=== PATIENT | female | born 1990 | race Caucasian/White ===

== ENCOUNTER 2020-09-16 11:34 | Emergency (ER) | payer OTHER ==
--- NOTE | 2020-09-16 12:20 | EDM.PDOC ---
ED HPI GENERAL MEDICAL PROBLEM - General Chief Complaint: Respiratory Problem Stated Complaint: COVID + AND DIFFICULTY BREATHING Time Seen by Provider: 09/16/20 11:58 Source of Information: Reports: Patient, RN Notes Reviewed History Limitations: Reports: No Limitations - History of Present Illness INITIAL COMMENTS - FREE TEXT/NARRATIVE: Patient is a 30-year-old female who presents to the ED for evaluation of her ongoing COVID-19 symptoms. The patient was diagnosed with COVID-19 on 09/07/2020. She states she is having increased shortness of breath were she cannot do much activity at all without feeling very winded. This started worsening yesterday. She has a slight cough at times when she takes a deeper breath than normal. She is denying any major fevers or chills, temperature at time of triage is 97.3 F, respiratory rate is 16, O2 sats are 99% on room air at rest, 97% with exertion. She has no obvious signs of dyspnea or labored breathing. The patient states she is supposed to go back to work on Saturday at this time. She denies any chance of as she states she is currently on her menses. She is quite unsure how she contracted this virus, she thinks she may have picked this up from her sister as she states that she is very careful about wearing her mask and handwashing. She states that her primary care provider is Dr. Jerrod Bhagat. - Related Data Allergies Allergy/AdvReac Type Severity Reaction Status Date / Time oxycodone HCl [From Percocet] Allergy Edema Verified 06/18/14 14:20 Penicillins Allergy Rash Verified 06/18/14 14:20 erythromycin base AdvReac Nausea and Verified 12/27/17 08:14 [Erythromycin Base] Vomiting Home Meds: Home Meds Albuterol [Ventolin HFA] 2 puff INH Q4H PRN 03/17/14 [History] Docusate Sodium [Colace] 2 tab PO DAILY PRN 03/17/14 [History] Esomeprazole Magnesium [Nexium] 1 tab PO DAILY 03/17/14 [History] Fluticasone Propionate [Flovent HFA 110 MCG] 1 puff INH BID 03/17/14 [History] LORazepam [Ativan] 1 mg PO PRN 03/17/14 [History] Lactobacillus Combo No.11 [Probiotic] 1 each PO DAILY 03/17/14 [History] Levothyroxine Sodium 125 mcg PO DAILY 03/17/14 [History] Mometasone Furoate [Nasonex Peosta] 1 spray DONAVON BID 03/17/14 [History] Norgestimate-Ethinyl Estradiol [Ortho-Cyclen 28 Tablet] 1 each PO DAILY 03/17/14 [History] Sucralfate [Carafate] 1 tab PO QID 03/17/14 [History] fluvoxaMINE Maleate [Fluvoxamine Maleate] 250 mg PO BEDTIME 03/17/14 [History] Folic Acid/Multivit-Min/Lutein [Multi-Vitamin Gummies] 06/18/14 [History] busPIRone [Buspar] 1 tab PO TID 06/22/14 [History] dexAMETHasone [Dexamethasone] 6 mg PO DAILY #4 tab 09/16/20 [Rx] Past Medical History Respiratory History: Reports: Asthma Gastrointestinal History: Reports: GERD Psychiatric History: Reports: Anxiety, Depression Endocrine/Metabolic History: Reports: Obesity/BMI 30+ Hematologic History: Reports: Anemia Other Hematologic History: on iron tabs - Past Surgical History GI Surgical History: Reports: Appendectomy, Cholecystectomy, Hernia, Inguinal, Other (See Below) ED ROS GENERAL - Review of Systems Review Of Systems: Comprehensive ROS is negative, except as noted in HPI. ED EXAM, GENERAL - Physical Exam Exam: See Below Exam Limited By: No Limitations General Appearance: Alert, WD/WN, No Apparent Distress Respiratory/Chest: No Respiratory Distress, Lungs Clear, Normal Breath Sounds, No Accessory Muscle Use, Chest Non-Tender Cardiovascular: Normal Peripheral Pulses, Regular Rate, Rhythm, No Murmur Peripheral Pulses: 2+: Radial (L), Radial (R) GI/Abdominal: Normal Bowel Sounds, Soft, Non-Tender, No Distention, No Mass Extremities: Normal Inspection, Normal Capillary Refill Neurological: Alert, Oriented, Normal Cognition, No Motor/Sensory Deficits Psychiatric: Normal Affect, Normal Mood Skin Exam: Warm, Dry, Intact, Normal Color, No Rash Course - Vital Signs Last Recorded V/S: Last Vital Signs Temp 97.3 F 09/16/20 11:46 Pulse 112 H 09/16/20 11:46 Resp 16 09/16/20 11:46 BP 137/91 H 09/16/20 11:46 Pulse Ox 99 09/16/20 11:46 - Re-Assessments/Exams Free Text/Narrative Re-Assessment/Exam: 09/16/20 12:29 Patient presents to the ED for evaluation of her ongoing COVID-19 symptoms. The patient looks really good in the room, she is not having any obvious respiratory distress, but due to her obesity, I do suspect that she might have a more prolonged illness. She is not had any laboratory evaluation or chest x- ray done for management of this virus. She is not hypoxic at the time of triage, and I do not believe that labs would be overly beneficial regarding management in her case as she does not need hospitalization at this time. Have ordered chest x-ray for initial evaluation and baseline. We will provide the patient with outpatient dexamethasone, 6 mg for the next 4 days, so she can hopefully return to work on Saturday without issue. Departure - Departure Time of Disposition: 12:31 Disposition: Home, Self-Care 01 Condition: Good Clinical Impression: COVID-19 - Discharge Information *PRESCRIPTION DRUG MONITORING PROGRAM REVIEWED*: No *COPY OF PRESCRIPTION DRUG MONITORING REPORT IN PATIENT BUCK: No Instructions: COVID-19 Frequently Asked Questions Referrals: Jerrod Long MD [Primary Care Provider] - Additional Instructions: You were seen in the ER today for ongoing and/or worsening respiratory symptoms. Your chest x-ray showed no signs of pneumonia at this time. Your oxygen levels were great at 97-99% on room air. Please try to increase your oral fluid intake, and eat multiple small meals throughout the day, to keep yourself healthy. You need to keep yourself nourished in order to fight off this disease. You can try a liquid diet like gatorade/powerade as well to get your electrolytes. You may take 500 mg Tylenol every hours 6 hours for pain/fever relief. Do not exceed 4000 mg Tylenol in a 24-hour time span. However, running a fever is your body's natural response to illness, and it allows the body to develop antibodies to disease, we are recommending trying to limit the use of Tylenol as much as possible to allow your body's natural immune response. Recommend you obtain a pulse oximeter and monitor your oxygen levels at home, you should place the monitor on your finger, and sit in a calm, quiet position for a few minutes and then record the number that is on the screen. If this consistently below 90% on room air without movement, this would be cause for concern to come back to the hospital for further management of your COVID-19 disease. You were given a prescription of dexamethasone, please take 1 tablet daily for the next 4 days, until the prescription is gone for further management of your COVID-19. Sepsis Event Note (ED) - Evaluation Sepsis Screening Result: No Definite Risk - Focused Exam Vital Signs: Vital Signs Temp Pulse Resp BP Pulse Ox 09/16/20 11:46 97.3 F 112 H 16 137/91 H 99
[2020-09-16 12:49] VITALS: BP 126/79; PULSE 103
--- NOTE | 2020-09-16 13:27 | CR ---
PROCEDURE INFORMATION: Exam: XR Chest, 1 View Exam date and time: 09/16/2020 12:12 PM Age: 30 years old Clinical indication: Shortness of breath; Additional info: Covid-19 positive TECHNIQUE: Imaging protocol: XR of the chest Views: 1 view. COMPARISON: No relevant prior studies available. FINDINGS: Lungs: Minimal ground-glass airspace disease at the lower lung lowery bilaterally. Pleural space: Unremarkable. No pleural effusion. No pneumothorax. Heart/Mediastinum: Unremarkable. No cardiomegaly. Bones/joints: Unremarkable. IMPRESSION: Minimal ground-glass airspace disease at the lower lung lowery bilaterally. Followup radiographs recommended after appropriate therapy. Thank you for allowing us to participate in the care of your patient. Dictated and Authenticated by: Narendra Penaloza MD 09/16/2020 1:48 PM Central Time ([place] & [place]) [place]
== END 2020-09-16 13:22 | disposition home or self-care (01) ==
LOC: JD.ED 11:34
DX: U07.1 COVID-19 (principal); K21.9 Gastro-esophageal reflux disease without esophagitis; F41.9 Anxiety disorder, unspecified; F32.9 Major depressive disorder, single episode, unspecified; E66.9 Obesity, unspecified; Z88.5 Allergy status to narcotic agent; Z88.0 Allergy status to penicillin; Z88.1 Allergy status to other antibiotic agents; Z90.49 Acquired absence of other specified parts of digestive tract; Z79.899 Other long term (current) drug therapy
CPT/HCPCS: 71045; 71045-26; 99284-25

== ENCOUNTER 2020-11-14 14:38 | Emergency (ER) | payer OTHER ==
[2020-11-14 15:05] VITALS: BP 131/82; PULSE 98
--- NOTE | 2020-11-14 15:14 | EDM.PDOC ---
ED HPI GENERAL MEDICAL PROBLEM - General Chief Complaint: Chest Pain Stated Complaint: CHEST PAIN/ ARM SWELLING AND LEG SWELLING Time Seen by Provider: 11/14/20 15:14 Source of Information: Reports: Patient History Limitations: Reports: No Limitations - History of Present Illness INITIAL COMMENTS - FREE TEXT/NARRATIVE: 30-year-old female presents to the ED for evaluation of persistent retrosternal chest heaviness, pressure discomfort for the better part of a week. She denies any associated cough or sputum production. No fever or chills. She had COVID- 19 illness diagnosed on September 18 and had minimal cough associated with this. She appreciates that she seems to be retaining some fluid over the last 3 to 4 days. She wears a carpal tunnel brace on her right wrist and was unable to fit last evening due to swelling. She appreciates some swelling or fluid retention in her lower extremities as well. This is never been a problem in the past. Patient takes meloxicam on a intermittent basis for low back pain. She has a history of chronic gastroesophageal reflux disease and takes pantoprazole daily. Has not recognized any severe reflux in the last week. Appetite remains good. No diarrhea. No history of previous DVT. Central chest pain worsened this afternoon and she rated as a 7 out of 10. She took an Ativan at home thinking it might be anxiety related. She states her current pain is 5 out of 10. However she does not appear to be in any significant distress. O2 sats are 100% on room air. Patient has a history of asthma but does not feel that her asthma is acting up or with wheezing is any worse than normal. Onset: Gradual Onset Date: 11/07/20 (Feels she has had retrosternal pressure discomfort for about 7 days.) Duration: Day(s): (She feels she has had central chest pressure discomfortFor the last week.) Location: Reports: Chest (Retrosternal central chest discomfort) Quality: Reports: Pressure, Other (Is a pressure heaviness.) Severity: Moderate (5 out of 10 at present.) Improves with: Reports: None Worsens with: Reports: None Context: Denies: Activity, Exercise, Lifting, Sick Contact, Trauma, Other Associated Symptoms: Reports: Chest Pain, Other (Feels she is retaining fluid in her hands and lower extremities.). 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: Reports: Other (see below) (Takes meloxicam on an intermittent basis.) Left Upper Chest Pain Score (Numeric/FACES): 5 - Related Data Allergies Allergy/AdvReac Type Severity Reaction Status Date / Time oxycodone HCl [From Percocet] Allergy Edema Verified 11/14/20 14:56 Penicillins Allergy Rash Verified 11/14/20 14:56 erythromycin base AdvReac Nausea and Verified 11/14/20 14:56 [Erythromycin Base] Vomiting Home Meds: Home Meds Albuterol [Ventolin HFA] 2 puff INH Q4H PRN 03/17/14 [History] Fluticasone Propionate [Flovent HFA 110 MCG] 1 puff INH BID 03/17/14 [History] LORazepam [Ativan] 1 mg PO ASDIRECTED PRN 03/17/14 [History] Lactobacillus Combo No.11 [Probiotic] 1 each PO DAILY 03/17/14 [History] Levothyroxine Sodium 112 mcg PO DAILY 03/17/14 [History] Mometasone Furoate [Nasonex [place]] 1 spray DONAVON BID 03/17/14 [History] Norgestimate-Ethinyl Estradiol [Ortho-Cyclen 28 Tablet] 1 each PO DAILY 03/17/14 [History] Folic Acid/Multivit-Min/Lutein [Multi-Vitamin Gummies] 06/18/14 [History] busPIRone [Buspar] 30 tab PO BID 06/22/14 [History] Dicyclomine [Bentyl] 20 mg PO Q6H PRN #12 tablet 11/14/20 [Rx] Escitalopram Oxalate [Lexapro] 10 mg PO DAILY 11/14/20 [History] buPROPion [Wellbutrin] 100 mg PO DAILY 11/14/20 [History] Past Medical History Respiratory History: Reports: Asthma Gastrointestinal History: Reports: GERD Psychiatric History: Reports: Anxiety, Depression Endocrine/Metabolic History: Reports: Hypothyroidism (Is on levothyroxine treatment 112 mcg daily.), Obesity/BMI 30+ Other Endocrine/Metabolic History: Radha Hematologic History: Reports: Anemia Other Hematologic History: on iron tabs Immunologic History: Reports: Other (See Below) Other Immunologic History: autoimmune disorder- sjogrens - Past Surgical History HEENT Surgical History: Reports: Tonsillectomy Other HEENT Surgeries/Procedures: adnoidectomy GI Surgical History: Reports: Appendectomy, Cholecystectomy, Hernia, Inguinal, Other (See Below) Other GI Surgeries/Procedures: umbilical hernia repair Social & Family History - Tobacco Use Tobacco Use Status *Q: Never Tobacco User - Caffeine Use Caffeine Use: Reports: None - Recreational Drug Use Recreational Drug Use: No - Living Situation & Occupation Living situation: Reports: Single Occupation: Employed ED ROS GENERAL - Review of Systems Review Of Systems: See Below Constitutional: Reports: Fatigue. Denies: Fever, Chills, Malaise, Weakness, Night Sweats, Decreased Appetite, Weight Loss HEENT: Reports: Glasses Respiratory: Denies: Shortness of Breath, Wheezing, Pleuritic Chest Pain, Cough, Sputum, Hemoptysis Cardiovascular: Reports: Chest Pain, Edema (Illness she is retaining fluid in her lower extremities and hands). Denies: Blood Pressure Problem (Central chest heaviness pressure discomfort for the better part of a week.), Claudication, Dyspnea on Exertion ( the last 2 to 3 days.), Lightheadedness, Orthopnea, Palpitations Endocrine: Reports: Fatigue GI/Abdominal: Reports: No Symptoms : Reports: No Symptoms Musculoskeletal: Reports: No Symptoms Skin: Reports: No Symptoms Neurological: Reports: No Symptoms Psychiatric: Reports: No Symptoms Hematologic/Lymphatic: Reports: No Symptoms ED EXAM, GENERAL - Physical Exam Exam: See Below Exam Limited By: No Limitations General Appearance: Alert, WD/WN, No Apparent Distress, Other (Temperature is 36.7. Heart rate is 98 and sinus respiratory is 12 with O2 sats of 99 to 100% room air. BP 131/82.) Eye Exam: Bilateral Eye: Normal Inspection (No scleral icterus or blepharal pallor.), PERRL Throat/Mouth: Normal Inspection, Normal Lips, Normal Teeth, Normal Oropharynx Head: Atraumatic, Normocephalic Neck: Normal Inspection, Supple, Non-Tender, Full Range of Motion. No: Lymphadenopathy (L), Lymphadenopathy (R) Respiratory/Chest: No Respiratory Distress, Lungs Clear, No Accessory Muscle Use, Wheezing (Mild expiratory wheeze left lung base cleared with deep inspiration x2.) Cardiovascular: Normal Peripheral Pulses, Regular Rate, Rhythm, No Edema, No Gallop, No Murmur, No Rub, Other (Midclavicular line bilaterally.) Peripheral Pulses: 3+: Carotid (L), Carotid (R), Posterior Tibial (L), Posterior Tibial (R), Dorsalis Pedis (L), Dorsalis Pedis (R) GI/Abdominal: Normal Bowel Sounds, Soft, Non-Tender, No Organomegaly, No Mass, Pelvis Stable, Other (Mildly obese. Nontender) Back Exam: Normal Inspection, Full Range of Motion, Other (Is a history of chronic low back pain.). No: CVA Tenderness (L), CVA Tenderness (R) Extremities: Other (Patient has very slight 81+ edema lower extremities. Calves are nontender and flaccid on squeeze test no clinical evidence of DVT. No obvious swelling of her hands or wrists clinically.) Neurological: Alert, Oriented, CN II-XII Intact, Normal Cognition Psychiatric: Normal Affect, Normal Mood Skin Exam: Warm, Dry, Intact, Normal Color, No Rash #1 Interpretation EKG Date: 11/14/20 Time: 15: Rhythm: NSR Rate (Beats/Min): 90 [place]: Other (0 degrees suggesting horizontal heart placement.) P-Wave: Present QRS: RBBB ST-T: Other (She has diffuse T wave inversion from V1 to V6 also leads III and aVF. Consider possible pericarditis.) QT: Prolonged (QTC is moderately prolonged.) EKG Interpretation Comments: Abnormal ECG Course - Vital Signs Last Recorded V/S: Last Vital Signs Temp 36.7 C 11/14/20 15:01 Pulse 98 11/14/20 15:01 Resp 12 11/14/20 15:01 BP 131/82 11/14/20 15:01 Pulse Ox 99 11/14/20 15:01 - Orders/Labs/Meds Orders: Active Orders 24 hr Category Date Time Status EKG Documentation Completion [RC] STAT Care 11/14/20 15:21 Active Peripheral IV Care [RC] . DIRECTED Care 11/14/20 15:27 Active Chest w Cont [CT] Stat Exams 11/14/20 17:18 Taken Sodium Chloride 0.9% [Saline Flush] Med 11/14/20 15:27 Active 10 ml FLUSH ASDIRECTED PRN Sodium Chloride 0.9% [Saline Flush] Med 11/14/20 18:00 Active 10 ml FLUSH BOLUS Peripheral IV Insertion Adult [OM.PC] Stat Oth 11/14/20 15:27 Ordered Medication Orders Sodium Chloride (Saline Flush) 10 ml FLUSH ASDIRECTED PRN PRN Reason: Keep Vein Open Last Admin: 11/14/20 17:40 Dose: 10 ml Documented by: LUIS Sodium Chloride (Saline Flush) 10 ml FLUSH BOLUS [facility] Last Admin: 11/14/20 18:16 Dose: 10 ml Documented by: DERECK Labs: Laboratory Tests 11/14/20 11/14/20 11/14/20 Range/Units 15:35 15:35 15:35 WBC 9.38 (3.98-10.04) K/mm3 RBC 4.80 (3.98-5.22) M/mm3 Hgb 13.4 (11.2-15.7) gm/dl Hct 42.0 (34.1-44.9) % MCV 87.5 (79.4-94.8) fl MCH 27.9 (25.6-32.2) pg MCHC 31.9 L (32.2-35.5) g/dl RDW Std Deviation 43.8 (36.4-46.3) fL Plt Count 378 H (182-369) K/mm3 MPV 9.8 (9.4-12.3) fl Neut % (Auto) 67.4 (34.0-71.1) % Lymph % (Auto) 21.0 (19.3-51.7) % [place] % (Auto) 7.5 (4.7-12.5) % Eos % (Auto) 3.6 (0.7-5.8) Baso % (Auto) 0.3 (0.1-1.2) % Neut # (Auto) 6.32 H (1.56-6.13) K/mm3 Lymph # (Auto) 1.97 (1.18-3.74) K/mm3 [place] # (Auto) 0.70 H (0.24-0.36) K/mm3 Eos # (Auto) 0.34 (0.04-0.36) K/mm3 Baso # (Auto) 0.03 (0.01-0.08) K/mm3 PT 10.4 (9.7-12.0) SECONDS INR 0.97 D-Dimer, Quantitative < 0.19 L (0.19-0.50) mg/L Sodium 142 (136-145) mEq/L Potassium 3.5 (3.5-5.1) mEq/L Chloride 105 (98-107) mEq/L Carbon Dioxide 28 (21-32) mEq/L Anion Gap 12.5 (5-15) BUN 9 (7-18) mg/dL Creatinine 0.9 (0.55-1.02) mg/dL Est Cr Clr Drug Dosing 74.23 mL/min Estimated GFR (MDRD) > 60 (>60) mL/min BUN/Creatinine Ratio 10.0 L (14-18) Glucose 116 H (74-106) mg/dL Calcium 8.9 (8.5-10.1) mg/dL Magnesium 2.3 (1.8-2.4) mg/dl Total Bilirubin 0.2 (0.2-1.0) mg/dL AST 17 (15-37) U/L ALT 38 (14-59) U/L Alkaline Phosphatase 55 (46-116) U/L Lactate Dehydrogenase 206 (81-234) U/L CK-MB (CK-2) 0.5 (0-3.6) ng/ml Troponin I < 0.017 (0.00-0.056) ng/mL C-Reactive Protein 1.0 (<1.0) mg/dL NT-Pro-B Natriuret Pep (0-125) pg/mL Total Protein 7.2 (6.4-8.2) g/dl Albumin 3.2 L (3.4-5.0) g/dl Globulin 4.0 gm/dL Albumin/Globulin Ratio 0.8 L (1-2) TSH 3rd Generation (0.358-3.74) uIU/mL HCG, Qual (NEGATIVE) 11/14/20 11/14/20 Range/Units 15:35 15:35 WBC (3.98-10.04) K/mm3 RBC (3.98-5.22) M/mm3 Hgb (11.2-15.7) gm/dl Hct (34.1-44.9) % MCV (79.4-94.8) fl MCH (25.6-32.2) pg MCHC (32.2-35.5) g/dl RDW Std Deviation (36.4-46.3) fL Plt Count (182-369) K/mm3 MPV (9.4-12.3) fl Neut % (Auto) (34.0-71.1) % Lymph % (Auto) (19.3-51.7) % [place] % (Auto) (4.7-12.5) % Eos % (Auto) (0.7-5.8) Baso % (Auto) (0.1-1.2) % Neut # (Auto) (1.56-6.13) K/mm3 Lymph # (Auto) (1.18-3.74) K/mm3 [place] # (Auto) (0.24-0.36) K/mm3 Eos # (Auto) (0.04-0.36) K/mm3 Baso # (Auto) (0.01-0.08) K/mm3 PT (9.7-12.0) SECONDS INR D-Dimer, Quantitative (0.19-0.50) mg/L Sodium (136-145) mEq/L Potassium (3.5-5.1) mEq/L Chloride (98-107) mEq/L Carbon Dioxide (21-32) mEq/L Anion Gap (5-15) BUN (7-18) mg/dL Creatinine (0.55-1.02) mg/dL Est Cr Clr Drug Dosing mL/min Estimated GFR (MDRD) (>60) mL/min BUN/Creatinine Ratio (14-18) Glucose (74-106) mg/dL Calcium (8.5-10.1) mg/dL Magnesium (1.8-2.4) mg/dl Total Bilirubin (0.2-1.0) mg/dL AST (15-37) U/L ALT (14-59) U/L Alkaline Phosphatase (46-116) U/L Lactate Dehydrogenase (81-234) U/L CK-MB (CK-2) (0-3.6) ng/ml Troponin I (0.00-0.056) ng/mL C-Reactive Protein (<1.0) mg/dL NT-Pro-B Natriuret Pep 16 (0-125) pg/mL Total Protein (6.4-8.2) g/dl Albumin (3.4-5.0) g/dl Globulin gm/dL Albumin/Globulin Ratio (1-2) TSH 3rd Generation 0.838 (0.358-3.74) uIU/mL HCG, Qual Negative (NEGATIVE) Meds: Medications Generic Name Dose Route Start Last Admin Trade Name Freq PRN Reason Stop Dose Admin Sodium Chloride 10 ml 11/14/20 15:27 11/14/20 17:40 Saline Flush FLUSH 10 ml ASDIRECTED PRN Administration Keep Vein Open Sodium Chloride 10 ml 11/14/20 18:00 11/14/20 18:16 Saline Flush FLUSH 10 ml BOLUS HEATHER Administration Discontinued Medications Generic Name Dose Route Start Last Admin Trade Name Freq PRN Reason Stop Dose Admin Iopamidol 100 ml 11/14/20 17:50 11/14/20 18:16 Isovue-300 (61%) IVPUSH 11/14/20 17:51 100 ml ONETIME ONE Administration - Radiology Interpretation Free Text/Narrative:: 30-year-old female presents to the ED with a 1 week history of central chest heaviness, pressure discomfort that worsened today. She reports it was 7 out of 10 at home prior to coming to the ED. She states that this time it is 5 out of 10. She does not appear to be in any distress. Lungs lungs are essentially clear to auscultation percussion. She has a history of asthma. History of gastroesophageal reflux that has not been worse as of late. She is diagnosed with COVID-19 illness September. She states she had minimal cough associated with this. Denies any fever chills cough or sputum production at this time. O2 sats were 99% to 100% room air. Unlikely to have PE. Plan ECG, chest x-ray portable. Routine labs including D-dimer and BNP to make sure there is no myocarditis associated with COVID-19 illness. - Re-Assessments/Exams Free Text/Narrative Re-Assessment/Exam: 11/14/20 16:08 White blood cell count is normal at 9.38. Auto differential shows 67.4% neutrophils. Hemoglobin 13.4 with hematocrit of 42.0 platelet count 378,000. This x-ray does reveal some degree of cardiomegaly with accentuation of the left ventricular area. There also is a groundglass appearance to the right lower lobe upper lung suggesting residual COVID-19 pneumonia. 11/14/20 16:51 PT is 10.4 with an INR of 0.97. D-dimer is< 0.19. Sodium is 142 potassium low normal at 3.5. Chloride 105 with a bicarb of 28. Anion gap is 12.5. BUN is 9 with a creatinine of 0.9. GFR is greater than 60. Glucose is 116. Calcium 8.9 with a magnesium of 2.3. Liver function normal. LDH is pending. CK-MB fraction is 0.5 with a troponin I of less than 0.017. C- reactive protein is normal at 1.0. BNP is pending. Total protein 7.2 with albumin fraction low normal at 3.2. TSH is 0.838. Beta-hCG is negative. 11/14/20 17:19 Plan will be to proceed with CT of the chest with IV contrast to rule out pericarditis. BNP is normal at 16. 11/14/20 18:30 CT of the chest performed with IV contrast reveals no evidence of pericarditis. Normal heart size. Visualized lung lowery are normal. Therefore the cause of her central chest discomfort remains elusive. I suspect it is likely GI in origin with esophagitis. 11/14/20 18:47 cussed the findings with the patient. We have ruled out any serious pathology such as pericarditis myocarditis and PE. I still believe that most likely she has occult reflux disease and mild hiatal hernia is evident on CT exam. Plan will be to increase her Prevacid to 30 mg twice daily bedtime and morning for the next 10 days. Bentyl 20 mg every 6 hours as needed for chest pain. Gaviscon 30 mils at bedtime for the next 10 days. Follow-up with primary care provider as needed. Departure - Departure Time of Disposition: 18:48 Disposition: Home, Self-Care 01 Reason for Transfer *Q: Other Condition: Fair Clinical Impression: Non-cardiac chest pain, Hiatal hernia with GERD Prescriptions: Dicyclomine [Bentyl] 20 mg PO Q6H PRN #12 tablet PRN Reason: Abdominal cramps/diarrhea Instructions: Esophagitis, Hiatal Hernia Referrals: Jerrod Long MD [Primary Care Provider] - Forms: ED Department Discharge Additional Instructions: Evaluation in the emergency room today in regards to central chest pressure heaviness discomfort that you have appreciated for the last week. Not necessarily worse with walking or exertion. Recent COVID-19 illness in September of this year. Therefore you underwent an extensive investigation as to the cause of your chest pain. ECG or heart tracing was mildly abnormal with flipped T waves in multiple leads concerning for possible inflammation of the sac around your heart called the pericardium. CT scan of the chest was therefore performed with IV contrast and rib reveals no evidence of inflammation of the pericardium and no excess fluid in the pericardium either. It also ruled out any blood clots within the lungs. I believe chest pain is secondary to reflux esophagitis occurring at bedtime with a small hiatal hernia evident on CT exam. Activity as tolerated. Continue albuterol inhaler as needed for wheezing as sometimes bronchospasm of the major airway can cause central chest discomfort which albuterol showed relief. Suggest Bentyl tablet 20 mg every 6 hours needed for relief of epigastric chest discomfort for the next day or 2. Suggest increasing your Prevacid to 30 mg twice daily morning and bedtime for the next 10 days and then return to once daily use at bedtime. Suggest use of Gaviscon liquid 30 mils at bedtime or Gaviscon tablets 2 at bedtime for the next 10 days to allow the food pipe to heal. One bad night of reflux will cause inflammation of the food pipe for the next 10 days. Follow-up with personal care physician or return to medical care if not markedly improved in 3 to 4 days time. Sepsis Event Note (ED) - Evaluation Sepsis Screening Result: No Definite Risk - Focused Exam Vital Signs: Vital Signs Temp Pulse Resp BP Pulse Ox 11/14/20 15:01 36.7 C 98 12 131/82 99 - My Orders Last 24 Hours: My Active Orders 11/14/20 15:21 EKG Documentation Completion [RC] STAT 11/14/20 15:27 Peripheral IV Care [RC] . DIRECTED Sodium Chloride 0.9% [Saline Flush] 10 ml FLUSH ASDIRECTED PRN Peripheral IV Insertion Adult [OM.PC] Stat 11/14/20 18:00 Sodium Chloride 0.9% [Saline Flush] 10 ml FLUSH BOLUS - Assessment/Plan Last 24 Hours: My Active Orders 11/14/20 15:21 EKG Documentation Completion [RC] STAT 11/14/20 15:27 Peripheral IV Care [RC] . DIRECTED Sodium Chloride 0.9% [Saline Flush] 10 ml FLUSH ASDIRECTED PRN Peripheral IV Insertion Adult [OM.PC] Stat 11/14/20 18:00 Sodium Chloride 0.9% [Saline Flush] 10 ml FLUSH BOLUS
[2020-11-14] MEDS ORDERED: Sodium Chloride 0.9% 10 ML Syringe FLUSH PRN (15:27)
--- NOTE | 2020-11-14 16:04 | CR ---
Chest: Portable view of the chest was obtained. Comparison: No prior study. Heart size and mediastinum are within normal limits for portable technique. Lungs are clear with no acute parenchymal change. Bony structures are grossly intact. Impression: 1. Nothing acute is seen on portable chest x-ray. Diagnostic code #1
[2020-11-14] MEDS ORDERED: Iopamidol 612 MG/ML 100 ML Bottle IVPUSH ONE (17:50)
[2020-11-14] MEDS ORDERED: Sodium Chloride 0.9% 10 ML Syringe FLUSH SCH (18:00)
--- NOTE | 2020-11-14 18:37 | CT ---
CT chest Technique: Multiple axial sections were obtained from above the lung apices inferiorly through the lung bases. Intravenous contrast was utilized. Reconstructed coronal and sagittal images were obtained. Comparison: Prior chest x-ray performed earlier the same day (3:23 PM). Findings: Thoracic aorta shows no aneurysm. Mediastinum and hilar regions show no adenopathy. No pericardial thickening or pericardial effusion is appreciated. Slight fatty infiltration is seen within the liver. Prior cholecystectomy is noted. Minimal area of atelectasis within the right lung base is seen. Lungs otherwise are clear. Bone window settings were reviewed. No acute osseous finding is appreciated. Impression: 1. No findings of pericardial thickening or fluid. 2. Minimal right basilar atelectasis. 3. Other findings within the abdomen. Nothing acute is appreciated. Diagnostic code #2
[2020-11-14] MEDS ORDERED: Dicyclomine 10 MG Cap PO ONE (18:47)
== END 2020-11-14 19:25 | disposition home or self-care (01) ==
LOC: JD.ED 14:38
DX: K44.9 Diaphragmatic hernia without obstruction or gangrene (principal); K21.9 Gastro-esophageal reflux disease without esophagitis; R07.89 Other chest pain; F32.9 Major depressive disorder, single episode, unspecified; F41.9 Anxiety disorder, unspecified; E03.9 Hypothyroidism, unspecified; Z88.0 Allergy status to penicillin; Z88.8 Allergy status to other drugs, medicaments and biological substances; Z79.899 Other long term (current) drug therapy
CPT/HCPCS: 36415; 71045; 71260; 80053; 82553; 83615; 83735; 83880; 84443; 84484; 84703; 85025; 85379; 85610; 86140; 93005; 99285; A9270; Q9967

== ENCOUNTER 2021-03-02 08:57 | Day surgery (SDC) | payer OTHER ==
--- NOTE | 2021-02-28 11:15 | PCM.PREANE ---
Preanesthetic Assessment - Procedure Proposed Procedure: Right CTR and Left Carpal Tunnel steroid injection - Anesthesia/Transfusion/Family Hx Anesthesia History: Prior Anesthesia Reaction Type of Anesthesia Reaction: Excessive Nausea/Vomiting Family History of Anesthesia Reaction: No Transfusion History: No Prior Transfusion(s) Intubation History: Unknown - Review of Systems Pulmonary: No Symptoms (Asthma: inhaler last used: COVID + September 2019: residual cough and SOB noted./ History of snoring: negaitve sleep study in the past. ETOH: rarely), Shortness of Breath, Cough (seasonal allergies) Cardiovascular: No Symptoms (History of SVT: 2012 with thyroid disease management; better now.), Palpitations (occaionally), Dyspnea on Exertion Gastrointestinal: No Symptoms (Gastritis/History of Sjogren's Syndrome: joint pain is primarily main complaint 12/28) Neurological: No Symptoms (polyarthralgias with Sjogren's disease/vertigo/lower back pain: 11/27), Dizziness, Numbness (CTS: bilateral hands/04/27) Other: Reports: Easy Bruising, Thyroid Problems (Radha's), Sinus Problem (seasonal allergies), Depression, Anxiety - Physical Assessment NPO Status Date: 03/01/21 NPO Status Time: 23:00 Vital Signs: HR:93 Sat:97% Temp:97.1 B/P: 135/64 Resp:16 Height: 1.6 m Weight: 122 kg ASA Class: 3 Mental Status: Alert & Oriented x3 Airway Class: Mallampati = 2 Dentition: Reports: Normal Dentition, Caries Thyro-Mental Finger Breadths: 3 Mouth Opening Finger Breadths: 3 ROM/Head Extension: Full Lungs: Clear to Auscultation, Normal Respiratory Effort Cardiovascular: Regular Rate, Regular Rhythm, No Murmurs - Lab Values: Laboratory Last Values MRSA (PCR) Negative 02/22/21 13:24 All labs reviewed and noted and within acceptable ranges to proceed with scheduled procedure. - Imaging/EKG Impressions: CXR: negative EKG: SR rate=90, Right BBB - Allergies Allergies/Adverse Reactions: Allergies Allergy/AdvReac Type Severity Reaction Status Date / Time oxycodone HCl [From Percocet] Allergy Edema Verified 03/01/21 11:55 Penicillins Allergy Rash Verified 03/01/21 11:55 erythromycin base AdvReac Nausea and Verified 03/01/21 11:55 [Erythromycin Base] Vomiting - Anesthesia Plan Pre-Op Medication Ordered: None, Other (917) - Acknowledgements Anesthesia Type Planned: MAC Pt an Appropriate Candidate for the Planned Anesthesia: Yes Alternatives and Risks of Anesthesia Discussed w Pt/Guardian: Yes Pt/Guardian Understands and Agrees with Anesthesia Plan: Yes PreAnesthesia Questionnaire Respiratory History: Reports: Asthma Gastrointestinal History: Reports: GERD Psychiatric History: Reports: Anxiety, Depression Endocrine/Metabolic History: Reports: Hypothyroidism (Is on levothyroxine treatment 112 mcg daily.), Obesity/BMI 30+ Other Endocrine/Metabolic History: Radha Hematologic History: Reports: Anemia Other Hematologic History: on iron tabs Immunologic History: Reports: Other (See Below) Other Immunologic History: autoimmune disorder- sjogrens - Past Surgical History HEENT Surgical History: Reports: Tonsillectomy Other HEENT Surgeries/Procedures: adnoidectomy GI Surgical History: Reports: Appendectomy, Cholecystectomy, Hernia, Inguinal, Other (See Below) Other GI Surgeries/Procedures: umbilical hernia repair - HOME MEDS Home Medications: Home Meds Albuterol [Ventolin HFA] 1 - 2 puff INH Q4H PRN 03/17/14 [History] LORazepam [Ativan] 1 mg PO QID PRN 03/17/14 [History] Levothyroxine Sodium 112 mcg PO DAILY 03/17/14 [History] Norgestimate-Ethinyl Estradiol [Ortho-Cyclen 28 Tablet] 1 each PO DAILY 03/17/14 [History] Folic Acid/Multivit-Min/Lutein [Multi-Vitamin Gummies] 1 tab PO DAILY 06/18/14 [History] Escitalopram Oxalate [Lexapro] 10 mg PO DAILY 11/14/20 [History] ARIPiprazole [Abilify] 2 mg PO DAILY 03/01/21 [History] Ascorbate Calcium [Vitamin C] 500 mg PO DAILY 03/01/21 [History] Cyclobenzaprine [Flexeril] 5 - 10 mg PO Q8H PRN 03/01/21 [History] Diclofenac Sodium [Voltaren 1% Gel] 1 dose TOP QID PRN 03/01/21 [History] Ferrous Sulfate [Iron] 325 mg PO DAILY 03/01/21 [History] Hydroxychloroquine Sulfate [Plaquenil] 400 mg PO DAILY 03/01/21 [History] Ibuprofen 600 mg PO TID PRN #10 tablet 03/01/21 [Rx] Pantoprazole Sodium [Protonix] 40 mg PO DAILY 03/01/21 [History] Triamcinolone Acetonide [Nasacort] 1 dose NASBOTH DAILY 03/01/21 [History] buPROPion HCL [Wellbutrin Xl] 300 mg PO DAILY 03/01/21 [History] busPIRone [Buspar] 15 mg PO BID 03/01/21 [History] - CURRENT (IN HOUSE) MEDS Current Meds: Current Medications Albuterol (Albuterol 0.083% 2.5 Mg/3 Ml Neb Soln) 2.5 mg NEB ONETIME PRN PRN Reason: asthma Lactated Ringer's (Ringers, Lactated) 1,000 mls @ 125 mls/hr IV ASDIRECTED HEATHER Stop: 03/02/21 23:00 Lidocaine/Sodium Bicarbonate (Lidocaine 1%/Sod Bicarbonate In Ns 8.4% 1 Ml Syringe) 0.25 ml IDERM ONETIME PRN PRN Reason: Prior to IV Start Stop: 03/02/21 23:00 Scopolamine (Scopolamine 1.5 Mg Transdermal Patch) 1.5 mg TRDERM ONETIME PRN PRN Reason: PONV Sodium Chloride (Sodium Chloride 0.9% 10 Ml Syringe) 10 ml FLUSH ASDIRECTED PRN PRN Reason: Keep Vein Open Stop: 03/02/21 18:00
[~2021-03-02 08:57] MED LIST: Albuterol 0.083% 2.5 MG/3 ML Neb Soln NEB PRN; Lactated Ringers 1,000 ML IV SCH; Lidocaine 1% 4 ML ONE; Lidocaine 1%/Sod Bicarbonate in NS 8.4% 1 ML Syringe IDERM PRN; Midazolam 1 MG/ML 2 ML SDV ONE; Ondansetron 4 MG/2 ML SDV ONE; Propofol 200 MG/20 ML SDV ONE; Scopolamine 1.5 MG Transdermal Patch TRDERM PRN; Sodium Chloride 0.9% 10 ML Syringe FLUSH PRN; fentaNYL 100 MCG/2 ML SDV ONE
[2021-03-02] MEDS ORDERED: ceFAZolin 1 GM Vial ONE (09:05)
[2021-03-02] MEDS ORDERED: Ketorolac 30 MG/ML SDV ONE (09:52)
[2021-03-02] MEDS ORDERED: HYDROmorphone 0.5 MG/0.5 ML Syringe ONE (09:53)
[2021-03-02] MEDS ORDERED: Triamcinolone Acetonide 40 MG/ML 1 ML SDV ONE (10:10)
[2021-03-02] MEDS ORDERED: Lidocaine 1% 30 ML SDV ONE (10:10)
[2021-03-02] MEDS ORDERED: Ondansetron 4 MG/2 ML SDV IVPUSH PRN (10:32)
[2021-03-02] MEDS ORDERED: HYDROmorphone 0.5 MG/0.5 ML Syringe IVPUSH PRN (10:32)
[2021-03-02] MEDS: Bupivacaine 0.25% 10 ML SDV ONE ×2 (10:39→10:50)
[2021-03-02] MEDS ORDERED: Propofol 200 MG/20 ML SDV ONE (10:39)
--- NOTE | 2021-03-02 11:00 | PCM48HPAN ---
Post Anesthesia Note - EVALUATION WITHIN 48HRS OF ANESTHETIC Vital Signs in Normal Range: Yes Patient Participated in Evaluation: Yes Respiratory Function Stable: Yes Airway Patent: Yes Cardiovascular Function Stable: Yes Hydration Status Stable: Yes Pain Control Satisfactory: Yes Nausea and Vomiting Control Satisfactory: Yes Mental Status Recovered: Yes Vital Signs: Last Vital Signs Temp 36.2 C 03/02/21 09:05 Pulse 93 03/02/21 09:05 Resp 16 03/02/21 09:05 BP 135/64 03/02/21 09:05 Pulse Ox 97 03/02/21 09:05
--- NOTE | 2021-03-02 12:10 | PCM.OPNOTE ---
- General Post-Op/Procedure Note Date of Surgery/Procedure: 03/02/21 Operative Procedure(s): right carpal tunnel release with left carpal tunnel injection Pre Op Diagnosis: bilateral median nerve compression syndrome Post-Op Diagnosis: Same Anesthesia Technique: Local, MAC Primary Surgeon: Tanner Hartmann Anesthesia Provider: Nohemy Btets Stave Cutter: Rica Hernandez in mLs: 5 Complications: None Condition: Good
[2021-03-02 14:00] VITALS: BP 117/57; PULSE 74
--- NOTE | 2021-03-09 09:29 | OR ---
DATE OF OPERATION: 03/02/2021 SURGEON: Tanner Hartmann MD OPERATION PERFORMED: Right carpal tunnel release with left carpal tunnel injection. PREOPERATIVE DIAGNOSIS: Bilateral median nerve compression neuropathy. POSTOPERATIVE DIAGNOSIS: Bilateral median nerve compression neuropathy. ANESTHESIA: Local MAC. ANESTHESIA PROVIDER: Nohemy Betts CRNA HEALTH TECHNICAL WRITER: Rica Hernandez LPN. ESTIMATED BLOOD LOSS: Less than 5 mL. COMPLICATIONS: None. CONDITION: Stable. DESCRIPTION OF PROCEDURE: The patient was identified in the preop holding area. Proper site was marked and identified by the surgeon. The patient was taken back to the operating theater where after adequate anesthesia, the patient's right upper extremity was sterilely prepped and draped in the usual sterile fashion. OR time-out was performed. The patient did not receive antibiotics and it is not indicated for soft tissue hand procedure. At this time, the right upper extremity was exsanguinated and an Esmarch was used as a tourniquet on the forearm. At this time, using 1% lidocaine without epinephrine and 0.25% Marcaine without epinephrine, the palmar cutaneous branch of the median nerve was anesthetized and then the incisional site was anesthetized using Andrew cardinal line and ulnar border of the fourth digit as reference. Once this had set up, an incision was made. Blunt dissection was taken down to the palmar cutaneous fascia. Palmar cutaneous fascia was incised with a Issue blade. At this time, the transverse carpal ligament was identified. A small rent was made in the transverse carpal ligament with a Issue blade under direct visualization. Resection of the transverse carpal ligament was done distally using tenotomy scissors making sure to stop short of the palmar arch. At this time, attention was turned proximally after it was found to be adequately released. Using the tenotomy scissors keeping the tips ulnar to protect the palmar cutaneous branch of the median nerve, the superficial forearm fascia as well as the transverse carpal ligament were resected proximally. It was found to be adequate release both proximally and distally. At this time, adequate saline was irrigated through the wound. 4-0 nylon sutures were used closure of the skin. The patient was placed in a sterile soft dressing and sent to PACU in stable condition. After this was completed, under sterile technique, 1 mL of 40 mg Kenalog and 2 mL of 0.25% Marcaine was injected to the left carpal tunnel, and the patient tolerated all procedures well. YOLA /[id number]
== END 2021-03-02 11:56 | disposition home or self-care (01) ==
LOC: JD.SDS 08:57
PROVIDERS: ATTEND Orthopaedic Surgery
DX: G56.03 Carpal tunnel syndrome, bilateral upper limbs (principal); G56.13 Other lesions of median nerve, bilateral upper limbs; K29.50 Unspecified chronic gastritis without bleeding; E55.9 Vitamin D deficiency, unspecified; M35.00 Sjogren syndrome, unspecified; M25.50 Pain in unspecified joint; R05 Cough; E03.9 Hypothyroidism, unspecified; E66.9 Obesity, unspecified; Z68.42 Body mass index [BMI] 45.0-49.9, adult; Z86.16 Personal history of COVID-19; Z88.0 Allergy status to penicillin; Z88.8 Allergy status to other drugs, medicaments and biological substances; Z79.890 Hormone replacement therapy; Z79.899 Other long term (current) drug therapy
CPT/HCPCS: 20526; 64721; 81025; A9270; J0690; J1170; J1885; J2250; J2405; J2704; J3010; J3301; J3490; J7120; 01810; 87641

== ENCOUNTER 2021-09-27 10:35 | Day surgery (SDC) | payer OTHER ==
--- NOTE | 2021-09-27 10:24 | PCM.PREANE ---
Preanesthetic Assessment - Procedure Proposed Procedure: Left carpal tunnel release - Anesthesia/Transfusion/Family Hx Anesthesia History: Prior Anesthesia Reaction Type of Anesthesia Reaction: Excessive Nausea/Vomiting Family History of Anesthesia Reaction: No Transfusion History: No Prior Transfusion(s) Intubation History: Unknown - Review of Systems General: No Symptoms Pulmonary: No Symptoms Cardiovascular: No Symptoms Gastrointestinal: No Symptoms Neurological: Tingling (left fingers) Other: Reports: Easy Bleeding, Easy Bruising, Thyroid Problems ([place]), Depression, Anxiety - Physical Assessment NPO Status Date: 09/26/21 NPO Status Time: 23:30 Vital Signs: BP 123/73 HR 90 RR 18 97% 97.2 Height: 1.6 m Weight: 125.7 kg ASA Class: 3 Mental Status: Alert & Oriented x3 Airway Class: Mallampati = 2 Dentition: Reports: [place](s), Caries Thyro-Mental Finger Breadths: 3 Mouth Opening Finger Breadths: 3 ROM/Head Extension: Full Lungs: Clear to Auscultation, Normal Respiratory Effort Cardiovascular: Regular Rate, Regular Rhythm, Murmurs - Allergies Allergies/Adverse Reactions: Allergies Allergy/AdvReac Type Severity Reaction Status Date / Time oxycodone HCl [From Percocet] Allergy Edema Verified 09/26/21 15:57 Penicillins Allergy Rash Verified 09/26/21 15:57 erythromycin base AdvReac Nausea and Verified 09/26/21 15:57 [Erythromycin Base] Vomiting - Acknowledgements Anesthesia Type Planned: MAC Pt an Appropriate Candidate for the Planned Anesthesia: Yes Alternatives and Risks of Anesthesia Discussed w Pt/Guardian: Yes Pt/Guardian Understands and Agrees with Anesthesia Plan: Yes PreAnesthesia Questionnaire HEENT History: Reports: Other (See Below) Other HEENT History: right ear pain, has glasses, atypical facial pain Cardiovascular History: Reports: Heart Murmur, Other (See Below) Other Cardiovascular History: SVT (resolved after thyroid medication adjusted), chest pain (denied), palpitations (denied) Respiratory History: Reports: Asthma, Other (See Below) Other Respiratory History: pleurisy, SOB with exertion Gastrointestinal History: Reports: GERD, Other (See Below) Other Gastrointestinal History: gastritis, incisional hernia, inguinodynia, epigastric pain, ventral hernia Genitourinary History: Reports: None VP DATA History: Reports: None Musculoskeletal History: Reports: Other (See Below) Other Musculoskeletal History: carpal tunnel syndrome, polyarthralgia, joint pain, polyarthralgia, right deltoid Neurological History: Reports: Other (See Below) Other Neuro History: facial pain Psychiatric History: Reports: Anxiety, Depression Endocrine/Metabolic History: Reports: Hypothyroidism, Obesity/BMI 30+, Vitamin D Deficiency Other Endocrine/Metabolic History: Radha's thyroiditis, hyperhydrosis disorder, sjogrens syndrome, connective tissue disease Hematologic History: Reports: Anemia Other Hematologic History: on iron tabs Immunologic History: Reports: Other (See Below) Other Immunologic History: autoimmune disorder- sjogrens Oncologic (Cancer) History: Reports: None Dermatologic History: Reports: Other (See Below) Other Dermatologic History: nail dermatophytosis, warts, hyperhydrosis - Infectious Disease History Infectious Disease History: Reports: Novel Coronavirus, Other (See Below) Other Infectious Disease History: covid in 09/2020 - Past Surgical History Head Surgeries/Procedures: Reports: None HEENT Surgical History: Reports: Adenoidectomy, Tonsillectomy Cardiovascular Surgical History: Reports: None Respiratory Surgical History: Reports: None GI Surgical History: Reports: Appendectomy, Cholecystectomy, Colonoscopy, EGD, Hernia, Inguinal, Other (See Below) Other GI Surgeries/Procedures: umbilical hernia repair, hernioplasty, herniorrhaphy, herniotomy Female Surgical History: Reports: None Neurological Surgical History: Reports: None Musculoskeletal Surgical History: Reports: Carpal Tunnel Oncologic Surgical History: Reports: None - SUBSTANCE USE Tobacco Use Status *Q: Never Tobacco User Tobacco Use Within Last Twelve Months: No Second Hand Smoke Exposure: No Days Per Week of Alcohol Use: 0 Number of Drinks Per Day: 0 Total Drinks Per Week: 0 Recreational Drug Use History: No - HOME MEDS Home Medications: Home Meds Albuterol [Ventolin HFA] 1 - 2 puff INH Q4H PRN 03/17/14 [History] LORazepam [Ativan] 1 mg PO QID PRN 03/17/14 [History] Levothyroxine Sodium 112 mcg PO DAILY 03/17/14 [History] Norgestimate-Ethinyl Estradiol [Ortho-Cyclen 28 Tablet] 1 each PO DAILY 03/17/14 [History] Folic Acid/Multivit-Min/Lutein [Multi-Vitamin Gummies] 1 tab PO DAILY 06/18/14 [History] ARIPiprazole [Abilify] 2 mg PO DAILY 03/01/21 [History] Ascorbate Calcium [Vitamin C] 500 mg PO DAILY 03/01/21 [History] Diclofenac Sodium [Voltaren 1% Gel] 1 dose TOP QID PRN 03/01/21 [History] Ferrous Sulfate [Iron] 325 mg PO DAILY 03/01/21 [History] Hydroxychloroquine Sulfate [Plaquenil] 400 mg PO DAILY 03/01/21 [History] Pantoprazole Sodium [Protonix] 40 mg PO DAILY 03/01/21 [History] Triamcinolone Acetonide [Nasacort] 1 dose NASBOTH DAILY 03/01/21 [History] buPROPion HCL [Wellbutrin Xl] 300 mg PO DAILY 03/01/21 [History] busPIRone [Buspar] 30 mg PO BID 03/01/21 [History] Cholecalciferol (Vitamin D3) [Vitamin D3] 5,000 unit PO DAILY 09/26/21 [History] Cyclobenzaprine [Flexeril] 5 - 10 mg PO Q8H PRN 09/26/21 [History] Meloxicam [Mobic] 15 mg PO DAILY 09/26/21 [History] - CURRENT (IN HOUSE) MEDS Current Meds: Current Medications Lactated Ringer's (Ringers, Lactated) 1,000 mls @ 125 mls/hr IV ASDIRECTED HEATHER Stop: 09/27/21 23:00 Lidocaine/Sodium Bicarbonate (Lidocaine 1%/Sod Bicarbonate In Ns 8.4% 1 Ml Syringe) 0.25 ml IDERM ONETIME PRN PRN Reason: Prior to IV Start Stop: 09/27/21 18:00 Sodium Chloride (Sodium Chloride 0.9% 10 Ml Syringe) 10 ml FLUSH ASDIRECTED PRN PRN Reason: Keep Vein Open Stop: 09/27/21 18:00
[~2021-09-27 10:35] MED LIST changes: -Albuterol 0.083% 2.5 MG/3 ML Neb Soln NEB PRN; -Lidocaine 1% 4 ML ONE; -Midazolam 1 MG/ML 2 ML SDV ONE; -Ondansetron 4 MG/2 ML SDV ONE; -Propofol 200 MG/20 ML SDV ONE; -Scopolamine 1.5 MG Transdermal Patch TRDERM PRN; -fentaNYL 100 MCG/2 ML SDV ONE
[2021-09-27] MEDS ORDERED: Scopolamine 1.5 MG Transdermal Patch TOP ONE (10:55)
[2021-09-27] MEDS ORDERED: Propofol 200 MG/20 ML SDV ONE ×2 (11:16→12:18)
[2021-09-27] MEDS ORDERED: Ondansetron 4 MG/2 ML SDV ONE (11:16)
[2021-09-27] MEDS ORDERED: ceFAZolin 1 GM Vial ONE ×2 (11:16→11:17)
[2021-09-27] MEDS ORDERED: Midazolam 1 MG/ML 2 ML SDV ONE (11:16)
[2021-09-27] MEDS ORDERED: fentaNYL 100 MCG/2 ML SDV ONE (11:16)
[2021-09-27] MEDS ORDERED: Ketorolac 30 MG/ML SDV ONE (11:17)
[2021-09-27] MEDS ORDERED: Lidocaine 1% 30 ML SDV ONE (11:41)
[2021-09-27] MEDS ORDERED: Bupivacaine 0.25% 10 ML SDV ONE (11:41)
--- NOTE | 2021-09-27 12:47 | PCM48HPAN ---
Post Anesthesia Note - EVALUATION WITHIN 48HRS OF ANESTHETIC Vital Signs in Normal Range: Yes Patient Participated in Evaluation: Yes Respiratory Function Stable: Yes Airway Patent: Yes Cardiovascular Function Stable: Yes Hydration Status Stable: Yes Pain Control Satisfactory: Yes Nausea and Vomiting Control Satisfactory: Yes Mental Status Recovered: Yes Vital Signs: Last Vital Signs Temp 97.2 F 09/27/21 10:45 Pulse 90 09/27/21 10:45 Resp 18 09/27/21 10:45 BP 123/73 09/27/21 10:45 Pulse Ox 97 09/27/21 10:45 Vital signs at 1240: 127/63 HR 92 RR 14 94% RA 98.3
--- NOTE | 2021-09-27 12:52 | PCM.OPNOTE ---
- General Post-Op/Procedure Note Date of Surgery/Procedure: 09/27/21 Operative Procedure(s): left carpal tunnel release Pre Op Diagnosis: left median nerve comporession neuropathy Post-Op Diagnosis: Same Anesthesia Technique: Local, MAC Primary Surgeon: Tanner Hartmann Anesthesia Provider: Angelita Nunes Supervisor Detasseling Crew: Aylin Dumont in mLs: 5 Complications: None Condition: Good
[2021-09-27 14:04] VITALS: BP 128/85; PULSE 77
--- NOTE | 2021-10-10 07:28 | OR ---
DATE OF OPERATION: 09/27/2021 SURGEON: Tanner Hartmann MD OPERATION PERFORMED: Left carpal tunnel release. PREOPERATIVE DIAGNOSIS: Left median nerve compression neuropathy. POSTOPERATIVE DIAGNOSIS: Left median nerve compression neuropathy. ANESTHESIA: Local MAC. ANESTHESIA PROVIDER: Mikey Castanon. ELECTRICAL TECHNICIAN: Aylin Dumont PA-C ESTIMATED BLOOD LOSS: Less than 5 mL. COMPLICATIONS: None. CONDITION: Stable. DESCRIPTION OF PROCEDURE: The patient was identified in the preop holding area. Proper site was marked and identified by the surgeon. The patient was taken back to the operating theater where after adequate anesthesia, the patient's left upper extremity was sterilely prepped and draped in the usual sterile fashion. OR time-out was performed. The patient did not receive antibiotics and it is not indicated for soft tissue hand procedure. At this time, the left upper extremity was exsanguinated and an Esmarch was used as a tourniquet on the forearm. At this time, using 1% lidocaine without epinephrine and 0.25% Marcaine without epinephrine, the palmar cutaneous branch of the median nerve was anesthetized and then the incisional site was anesthetized using Andrew cardinal line and ulnar border of the fourth digit as reference. Once this had set up, an incision was made. Blunt dissection was taken down to the palmar cutaneous fascia. Palmar cutaneous fascia was incised with a [place] blade. At this time, the transverse carpal ligament was identified. A small rent was made in the transverse carpal ligament with a [place] blade under direct visualization. Resection of the transverse carpal ligament was done distally using tenotomy scissors making sure to stop short of the palmar arch. At this time, attention was turned proximally after it was found to be adequately released. Using the tenotomy scissors keeping the tips ulnar to protect the palmar cutaneous branch of the median nerve, the superficial forearm fascia as well as the transverse carpal ligament were resected proximally. It was found to be adequate release both proximally and distally. At this time, adequate saline was irrigated through the wound. 4-0 nylon sutures were used closure of the skin. The patient was placed in a sterile soft dressing and sent to PACU in stable condition. MMODAL /[id number]
== END 2021-09-27 13:25 | disposition home or self-care (01) ==
LOC: JD.SDS 10:35
PROVIDERS: ATTEND Orthopaedic Surgery
DX: G56.12 Other lesions of median nerve, left upper limb (principal); K21.9 Gastro-esophageal reflux disease without esophagitis; Z79.899 Other long term (current) drug therapy; Z88.0 Allergy status to penicillin; Z88.8 Allergy status to other drugs, medicaments and biological substances; Z90.49 Acquired absence of other specified parts of digestive tract; Z98.890 Other specified postprocedural states
CPT/HCPCS: 64721; A9270; J0690; J1885; J2250; J2405; J2704; J3010; J3490; J7120; 01810

== ENCOUNTER 2022-07-25 11:23 | Day surgery (SDC) | payer OTHER ==
[~2022-07-25 11:23] MED LIST changes: +Sodium Chloride 0.9% 10 ML Syringe FLUSH SCH
[2022-07-25] MEDS ORDERED: Bupivacaine 0.5% 30 ML SDV ONE (12:58)
[2022-07-25] MEDS ORDERED: Scopolamine 1.5 MG Transdermal Patch TRDERM ONE (13:32)
[2022-07-25] MEDS ORDERED: Midazolam 1 MG/ML 2 ML SDV ONE (13:39)
[2022-07-25] MEDS ORDERED: fentaNYL 100 MCG/2 ML SDV ONE (13:39)
[2022-07-25] MEDS ORDERED: Ondansetron 4 MG/2 ML SDV ONE (13:39)
[2022-07-25] MEDS ORDERED: Propofol 200 MG/20 ML SDV ONE (13:39)
[2022-07-25 15:49] VITALS: BP 131/70; PULSE 83
== END 2022-07-25 15:32 | disposition home or self-care (01) ==
LOC: JD.SDS 11:23
PROVIDERS: ATTEND Surgery
DX: D12.3 Benign neoplasm of transverse colon (principal); K29.50 Unspecified chronic gastritis without bleeding; K21.9 Gastro-esophageal reflux disease without esophagitis; K31.7 Polyp of stomach and duodenum; F41.9 Anxiety disorder, unspecified; F32.A Depression, unspecified; M35.00 Sjogren syndrome, unspecified; Z83.79 Family history of other diseases of the digestive system; Z86.16 Personal history of COVID-19; Z90.49 Acquired absence of other specified parts of digestive tract; Z98.890 Other specified postprocedural states; Z88.0 Allergy status to penicillin; Z88.8 Allergy status to other drugs, medicaments and biological substances
CPT/HCPCS: 00813; A9270-GY; J2250; J2405; J2704; J3010; J3490; J7120

== ENCOUNTER 2024-11-19 12:42 | Emergency (ER) | payer OTHER ==
[2024-11-19 13:21] LABS: BASOPHILS PERCENT AUTO 0.5 % (0.0-1.0); EOSINOPHILS ABSOLUTE AUTO 0.2 K/mm3 (0.0-0.4); EOSINOPHILS PERCENT AUTO 2.1 % (0.0-6.0); HEMATOCRIT 45.3 % (37.0-47.0); HEMOGLOBIN 14.3 gm/dl (12.0-16.0); IMMATURE GRAN ABSOLUTE AUTO 0.02 K/mm3 (0.00-0.05); IMMATURE GRAN PERCENT AUTO 0.2 % (0.0-0.4); LYMPHOCYTES ABSOLUTE AUTO 1.6 K/mm3 (1.0-4.8); LYMPHOCYTES PERCENT AUTO 18.9 % (24.0-44.0); MEAN CORPUSCULAR HEMOGLOBIN 26.8 pg (28.0-32.0); MEAN CORPUSCULAR HGB CONC 31.6 g/dl (32.0-36.0); MEAN PLATELET VOLUME 9.9 fl (9.4-12.3); MONOCYTES ABSOLUTE AUTO 0.5 K/mm3 (0.0-0.8); MONOCYTES PERCENT AUTO 5.2 % (0.0-8.0); NEUTROPHILS ABSOLUTE AUTO 6.3 K/mm3 (1.8-7.7); NEUTROPHILS PERCENT AUTO 73.1 % (41.0-71.0); PLATELET COUNT,PLT 444 K/mm3 (150-400); RED BLOOD CELL COUNT 5.33 M/mm3 (4.10-5.30); WHITE BLOOD CELL COUNT,WBC 8.66 K/mm3 (3.9-11.3)
[2024-11-19 13:41] LABS: A/G RATIO 0.7 (1-2); ALANINE AMINOTRANSFERASE,ALT 26 U/L (14-59); ALBUMIN 3.2 g/dl (3.4-5.0); ALKALINE PHOSPHATASE 76 U/L (46-116); ASPARTATE AMNIOTRANSFERASE,AST 14 U/L (15-37); BILIRUBIN TOTAL 0.5 mg/dL (0.2-1.0); BLOOD UREA NITROGEN,BUN 7 mg/dL (7-18); BUN/CREATININE RATIO 7.8 (14-18); C-REACTIVE PROTEIN 2.34 mg/dL (<0.30); CALCIUM 9.1 mg/dL (8.5-10.1); CARBON DIOXIDE,CO2 28 mEq/L (21-32); CHLORIDE,CL 101 mEq/L (98-107); CREATINE KINASE,CK 112 U/L (26-192); CREATININE 0.9 mg/dL (0.55-1.02); EST CRCL DRUG DOSING (CG) 71.48 mL/min; ESTIMATED GFR 85 mL/min (>60); GLUCOSE RANDOM 143 mg/dL (70-99); MAGNESIUM 1.8 mg/dL (1.8-2.4); PROTEIN TOTAL,TP 7.5 g/dl (6.4-8.2); SODIUM,NA 142 mEq/L (136-145)
[2024-11-19 13:50] LABS: TROPONIN I HIGH SENSITIVITY < 4 pg/mL (<=51)
[2024-11-19] MEDS: Potassium Chloride 20 MEQ Tab.ER PO ONE (14:55)
[2024-11-19] MEDS: Sodium Chloride 0.9% 1,000 ML IV ONE (14:55)
[2024-11-19] MEDS: Potassium Chloride 10 MEQ in Premix Bag 1 BAG IV ONE (14:55)
[2024-11-19 16:07] VITALS: BP 121/81; PULSE 85
== END 2024-11-19 16:07 | disposition home or self-care (01) ==
LOC: JD.ED 12:42
DX: R55 Syncope and collapse (principal); E87.6 Hypokalemia; E86.9 Volume depletion, unspecified; K21.9 Gastro-esophageal reflux disease without esophagitis; Z88.0 Allergy status to penicillin; Z88.1 Allergy status to other antibiotic agents; Z88.8 Allergy status to other drugs, medicaments and biological substances; Z79.890 Hormone replacement therapy; Z79.899 Other long term (current) drug therapy; Z86.16 Personal history of COVID-19; Z90.49 Acquired absence of other specified parts of digestive tract
CPT/HCPCS: 36415; 71045; 80053; 82550; 83735; 84484; 84703; 85025; 85379; 85652; 86140; 93005; 96365; 99285; A9270; J3480; J7030